=== PATIENT | male | born 1935 | race Caucasian/White ===

== ENCOUNTER 2019-11-24 11:47 | Outpatient (CLI) | payer MEDICARE, BC ==
[~2019-11-24 11:47] MED LIST: APIX5TAB PO; ATOR40TA78 PO; BICA50TA5 PO; CARV3.1212 PO; CHOL500045 PO; DIGO125T PO; DRON2.5C PO; FERR-51 PO; HYDR-3342 PO; LEVO25TA4 PO; MULT1TAB9 PO; POLY17PO5 PO; SELE200T17 PO; [UNRECOGNIZED DRUG - CODE] PO
== END 2019-11-24 23:59 | disposition home or self-care (01) ==
LOC: RAD 11:47
PROVIDERS: ATTEND Family Medicine
DX: Z45.2 Encounter for adjustment and management of vascular access device (principal); C61 Malignant neoplasm of prostate; I10 Essential (primary) hypertension; I48.91 Unspecified atrial fibrillation; E78.5 Hyperlipidemia, unspecified; Z79.01 Long term (current) use of anticoagulants; Z90.79 Acquired absence of other genital organ(s)
CPT/HCPCS: 36573; C1751